=== PATIENT | male | born 1950 | race Caucasian/White ===

== ENCOUNTER → 2017-12-11 | Outpatient (CLI) | payer MEDICARE, OTHER | LOC: M SMT 11:24 | DX: R94.2 Abnormal results of pulmonary function studies (principal) | CPT/HCPCS: 71046 ==

== ENCOUNTER → 2018-05-02 | Outpatient (CLI) | payer MEDICARE, OTHER | LOC: M LRY 10:05 | DX: M17.11 Unilateral primary osteoarthritis, right knee (principal); M25.561 Pain in right knee | CPT/HCPCS: G0463 ==

== ENCOUNTER → 2018-05-02 | Outpatient (CLI) | payer OTHER | LOC: M LRY 09:59 | DX: Z53.9 Procedure and treatment not carried out, unspecified reason (principal) ==

== ENCOUNTER 2018-07-04 21:07 | Emergency (ER) | payer MEDICARE, OTHER ==
[~2018-07-04] VITALS: Ht 170.2 cm; Wt 111.4 kg
[2018-07-04 21:08] VITALS: BP 170/93
[2018-07-04] MEDS ORDERED: OMEP20CA3 (21:20)
[2018-07-04] MEDS ORDERED: CYCL10TA (21:20)
[2018-07-04] MEDS ORDERED: VITA50005 (21:20)
[2018-07-04] MEDS ORDERED: NAPR-885 (21:20)
[2018-07-04] MEDS ORDERED: ROPI0.253 (21:20)
[2018-07-04] MEDS ORDERED: LISI40TA (21:20)
[2018-07-04] MEDS ORDERED: ZETI10TA30 (21:20)
[2018-07-04] MEDS ORDERED: ASPI1TAB15 (21:20)
[2018-07-04] MEDS ORDERED: NIFE30TA50 (21:20)
[2018-07-04] MEDS ORDERED: NIFE60TA40 (21:20)
[2018-07-04] MEDS ORDERED: ALLO100T (21:20)
[2018-07-04] MEDS ORDERED: LIPI20TA PO (21:20)
[2018-07-04] MEDS ORDERED: PRAV40TA2 (21:20)
[2018-07-04] MEDS ORDERED: ROBA500T PO (22:08)
[2018-07-04] MEDS ORDERED: MOBI4TAB PO (22:08)
[2018-07-04] MEDS ORDERED: NORCO 5/325MG TABLET (BULK FOR ED) PO ONE (22:15)
[2018-07-04] MEDS ORDERED: KETOROLAC TROMETHAMINE 10 MG TAB PO ONE (22:15)
[2018-07-04] MEDS ORDERED: METHOCARBAMOL 750 MG TAB PO ONE (22:15)
== END 2018-07-04 22:22 | disposition home or self-care (01) ==
LOC: M ED 22:19
DX: S39.012A Strain of muscle, fascia and tendon of lower back, initial encounter (principal); Y93.H1 Activity, digging, shoveling and raking

== ENCOUNTER 2019-07-11 06:31 | Emergency (ER) | payer MEDICARE, OTHER ==
[~2019-07-11] VITALS: Ht 170.2 cm; Wt 106.8 kg
[~2019-07-11 06:31] MED LIST: ALLO100T; ASPI1TAB15; CYCL10TA; LIPI20TA PO; LISI40TA; MOBI4TAB PO; NAPR-885; NIFE30TA50; NIFE60TA40; OMEP1CAP73; PRAV40TA2; ROBA500T PO; ROPI0.253; VITA50005; ZETI10TA16
[2019-07-11] MEDS ORDERED: LIDOCAINE 5% (LIDODERM) PATCH TD ONE (07:30)
[2019-07-11] MEDS ORDERED: CYCL10TA PO (07:43)
[2019-07-11] MEDS ORDERED: LIDO5DIS41 TOP (07:43)
[2019-07-11] MEDS ORDERED: NORC1TAB7 PO (07:43)
[2019-07-11 07:51] VITALS: BP 142/82
[2019-07-11] MEDS ORDERED: **NOTE PATIENT COMMENT** MISC XX SCH (21:00)
== END 2019-07-11 07:53 | disposition home or self-care (01) ==
LOC: M ED 06:31
DX: S39.012A Strain of muscle, fascia and tendon of lower back, initial encounter (principal); X58.XXXA Exposure to other specified factors, initial encounter; Y92.9 Unspecified place or not applicable; Y93.9 Activity, unspecified; Y99.9 Unspecified external cause status; I10 Essential (primary) hypertension; E78.5 Hyperlipidemia, unspecified; K21.9 Gastro-esophageal reflux disease without esophagitis; Z79.82 Long term (current) use of aspirin; Z79.899 Other long term (current) drug therapy

== ENCOUNTER 2020-02-14 07:26 | Emergency (ER) | payer MEDICARE, OTHER ==
[~2020-02-14] VITALS: Ht 170.2 cm; Wt 114.8 kg
[~2020-02-14 07:26] MED LIST changes: +ASPI-546; -ASPI1TAB15; +CYCL-707; +CYCL-707 PO; -CYCL10TA; +LIDO5DIS41 TOP; +NORC1TAB7 PO
[2020-02-14] MEDS ORDERED: ACETAMINOPHEN 325 MG TAB PO ONE (08:15)
[2020-02-14] MEDS ORDERED: LIDOCAINE 5% (LIDODERM) PATCH TD ONE (08:15)
[2020-02-14 08:47] LABS: BASO # 0.1 10^3/uL (0.0-0.2); BASO % 0.8 % (0.0-1.0); EOS # 0.2 10^3/uL (0.0-0.5); EOS % 2.6 % (0.0-3.0); HEMATOCRIT 41.9 % (42.0-52.0); LYMPH # 2.2 10^3/uL (1.5-5.0); LYMPH % 31.1 % (24.0-44.0); MEAN CORPUSCULAR HEMOGLOBIN 30.5 pg (27.0-33.0); MEAN CORPUSCULAR HGB CONC 33.4 g/dl (32.0-36.5); MEAN CORPUSCULAR VOLUME 91.3 fl (80.0-96.0); MONO # 0.6 10^3/uL (0.0-0.8); MONO % 8.2 % (0.0-5.0); NEUTROPHILS # 4.1 10^3/uL (1.5-8.5); NEUTROPHILS % 56.7 % (36.0-66.0); PLATELET COUNT, AUTOMATED 247 10^3/uL (150-450); RED BLOOD COUNT 4.59 10^6/uL (4.30-6.10); WHITE BLOOD COUNT 7.2 10^3/uL (4.0-10.0)
[2020-02-14 09:09] LABS: BLOOD UREA NITROGEN 16 MG/DL (7-18); C REACTIVE PROTEIN QUANTITATIV 1.19 MG/DL (0.00-0.30); CALCIUM LEVEL 8.9 MG/DL (8.8-10.2); CARBON DIOXIDE LEVEL 29 MEQ/L (21-32); CHLORIDE LEVEL 105 MEQ/L (98-107); CREATININE FOR GFR 0.99 MG/DL (0.70-1.30); GLOMERULAR FILTRATION RATE > 60.0 (>49); GLUCOSE, FASTING 100 MG/DL (70-100); POTASSIUM SERUM 4.3 MEQ/L (3.5-5.1); SODIUM LEVEL 140 MEQ/L (136-145)
[2020-02-14 09:13] LABS: ERYTHROCYTE SEDIMENTATION RATE 8 mm/hr (0-20)
--- NOTE | 2020-02-14 09:13 | REPVR ---
PROCEDURE INFORMATION: Exam: XR Right Knee Exam date and time: 02/14/2020 8:55 AM Age: 69 years old Clinical indication: Pain; Knee; Right; Patient HX: HX of gout; Additional info: R knee pain, , h/o gout TECHNIQUE: Imaging protocol: XR Right knee. Views: 4 or more views. COMPARISON: CR KNEE COMPLETE 05/02/2018 10:28 AM FINDINGS: Bones/joints: Advanced degenerative change of the patellofemoral compartment. Moderate degenerative change of the medial and lateral compartments. Superior and inferior patellar enthesophytes. No acute fracture. No dislocation. Soft tissues: Normal. Vasculature: Scattered vascular calcifications. IMPRESSION: Tricompartmental DJD. Electronically signed by: Rivka Hoffman On 02/14/2020 09:13:28 AM
--- NOTE | 2020-02-14 09:16 | REPVR ---
PROCEDURE INFORMATION: Exam: XR Lumbosacral Spine, 4 or 5 Views Exam date and time: 02/14/2020 8:55 AM Age: 69 years old Clinical indication: Low back pain; Additional info: Right low back pain TECHNIQUE: Imaging protocol: XR of the lumbosacral spine, 4 or 5 views. COMPARISON: No relevant prior studies available. FINDINGS: Vertebrae: Multilevel posterior facet joint arthropathy. Multilevel [id number]-[id number] degenerative endplate changes. Multilevel bridging ventral osteophytes. 4 mm of retrolisthesis of L5 on S1. Mild disc space narrowing at L5-S1. No acute fracture is identified. Soft tissues: Unremarkable. Vasculature: Atherosclerotic vascular calcifications. IMPRESSION: 1. Multilevel degenerative endplate changes and posterior facet joint arthropathy. 2. Minimal retrolisthesis of L5 on S1. Electronically signed by: Rivka Hoffman On 02/14/2020 09:15:56 AM
[2020-02-14] MEDS ORDERED: COLCHICINE 0.6 MG TAB PO ONE ×2 (09:45)
[2020-02-14] MEDS ORDERED: LIDO5DIS41 TOP (09:49)
[2020-02-14] MEDS ORDERED: COLC1TAB13 PO (10:03)
[2020-02-14 10:10] VITALS: BP 138/68
[2020-02-14] MEDS ORDERED: **NOTE PATIENT COMMENT** MISC XX ONE (21:00)
== END 2020-02-14 10:10 | disposition home or self-care (01) ==
LOC: M ED 07:26
DX: M51.36 Other intervertebral disc degeneration, lumbar region (principal); M43.16 Spondylolisthesis, lumbar region; M25.561 Pain in right knee; M10.9 Gout, unspecified; E78.5 Hyperlipidemia, unspecified; K21.9 Gastro-esophageal reflux disease without esophagitis; I10 Essential (primary) hypertension; Z79.82 Long term (current) use of aspirin; Z79.899 Other long term (current) drug therapy

== ENCOUNTER → 2020-03-04 | Outpatient (CLI) | payer MEDICARE, OTHER ==
[~2020-03-04] MED LIST changes: +COLC1TAB13 PO
--- NOTE | 2020-03-19 17:32 | REP ---
RIGHT ANKLE SERIES: 4 VIEWS. HISTORY: Right ankle pain. FINDINGS: Four views to the right ankle demonstrate moderate osteoarthritis at the tibiotalar articulation with spurring anteriorly and posteriorly. There is a large Achilles calcaneal spur. Small accessory ossicles are seen adjacent to the medial and lateral malleoli. These appear chronic. No erosive changes seen> there is tendon insertion site spurring on the tarsal navicula and on the proximal 5th metatarsal. IMPRESSION: Ankle osteoarthritic changes. Heel spurring. JARADD
--- NOTE | 2020-03-19 17:33 | REP ---
RIGHT FOOT SERIES: 4 VIEWS. HISTORY: Pain. COMPARISON: Right foot radiographs 06/25/06 FINDINGS: There is tendon insertion site spurring at the medial surface of the tarsal navicula and laterally at the proximal 5th metatarsal and at the lateral aspect of the calcaneus. There is mild midfoot osteoarthritic spurring. Prominent Achilles calcaneal spur is noted. A small planter calcaneal spur is noted. Ankle osteoarthritic spurring is seen. 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 This is unchanged from the 2007 study. IMPRESSION: Osteoarthritis and enthesopathy spurring. No acute bony abnormality. Heel spurs. MTDD
== END ==
LOC: M ADAMS 07:59
PROVIDERS: ATTEND Nurse Practitioner Family
DX: M19.071 Primary osteoarthritis, right ankle and foot (principal)

== ENCOUNTER → 2020-04-30 | Outpatient (CLI) | payer MEDICARE, OTHER | LOC: M LABSMTC 09:34 | PROVIDERS: ATTEND Family Medicine | DX: Z20.828 Contact with and (suspected) exposure to other viral communicable diseases (principal) ==

== ENCOUNTER → 2020-07-13 | Outpatient (CLI) | payer MEDICARE, OTHER ==
[~2020-07-13] MED LIST changes: +COLC0.6T47 PO; -COLC1TAB13 PO; +ECOT81TA5 PO; -LISI40TA; +LISI40TA4; +PERC5TAB12 PO; +ZETI10TA16 PO
[2020-07-13 09:15] LABS: HEMATOCRIT 43.4 % (42.0-52.0); HEMOGLOBIN 14.4 g/dl (13.5-17.5); MEAN CORPUSCULAR HEMOGLOBIN 30.1 pg (27.0-33.0); MEAN CORPUSCULAR HGB CONC 33.2 g/dl (32.0-36.5); MEAN CORPUSCULAR VOLUME 90.8 fl (80.0-96.0); PLATELET COUNT, AUTOMATED 234 10^3/uL (150-450); RED BLOOD COUNT 4.78 10^6/uL (4.30-6.10); WHITE BLOOD COUNT 5.7 10^3/uL (4.0-10.0)
[2020-07-13 09:25] LABS: INR 0.94; PROTHROMBIN TIME 12.8 SECONDS (12.5-14.3)
--- NOTE | 2020-07-13 09:27 | REP ---
INDICATION: KNEE OSTEOARTHRITIS/PRE OP/ LABS COMPARISON: 12/11/2017 TECHNIQUE: PA and lateral. FINDINGS: The mediastinum and cardiac silhouette are normal. The lung resendiz are clear and without acute consolidation, effusion, or pneumothorax. The skeletal structures are intact and normal. IMPRESSION: No acute cardiopulmonary process. <Electronically signed by Tu Alvarez > 07/13/20 0923
--- NOTE | 2020-07-13 09:30 | ECGEPIP ---
[facility] Test Date: 2020-07-13 Pat Name: MAXIMILIAN OAKLEY Department: Room: - Gender: Male [employer]: : 1950 Requested By: Kiana Montgomery Order Number: [id number] Reading MD: Milton Ferreira Measurements Intervals [place] Rate: 58 P: 20 AK: 159 QRS: 2 QRSD: 98 T: 12 QT: 405 QTc: 401 Interpretive Statements SINUS BRADYCARDIA Marginal inferoapical ST/T wave abnormalities No change from 05/04/16. Electronically Signed on 07-13-2020 9:29:51 EST by Milton Ferreira
[2020-07-13 09:33] LABS: ERYTHROCYTE SEDIMENTATION RATE 6 mm/hr (0-20)
[2020-07-13 09:43] LABS: ALBUMIN 3.8 GM/DL (3.2-5.2); ALT/SGPT 32 U/L (12-78); BILIRUBIN,TOTAL 0.4 MG/DL (0.2-1.0); BLOOD UREA NITROGEN 20 MG/DL (7-18); CALCIUM LEVEL 9.3 MG/DL (8.8-10.2); CARBON DIOXIDE LEVEL 29 MEQ/L (21-32); CHLORIDE LEVEL 105 MEQ/L (98-107); CREATININE FOR GFR 0.94 MG/DL (0.70-1.30); GLOMERULAR FILTRATION RATE > 60.0 (>49); GLUCOSE, FASTING 108 MG/DL (70-100); POTASSIUM SERUM 4.3 MEQ/L (3.5-5.1); SODIUM LEVEL 142 MEQ/L (136-145); TOTAL PROTEIN 7.1 GM/DL (6.4-8.2)
== END ==
LOC: M LAB 08:31
PROVIDERS: ATTEND Orthopaedic Surgery
DX: Z01.818 Encounter for other preprocedural examination (principal); M17.11 Unilateral primary osteoarthritis, right knee

== ENCOUNTER → 2020-07-15 | Outpatient (CLI) | payer MEDICARE, OTHER | LOC: M LABSMTC 11:37 | PROVIDERS: ATTEND Anesthesiology | DX: Z01.812 Encounter for preprocedural laboratory examination (principal); Z20.822 Contact with and (suspected) exposure to COVID-19 ==

== ENCOUNTER 2020-07-20 06:55 | Inpatient (IN) | payer MEDICARE, OTHER ==
--- NOTE | 2020-07-16 09:00 | HPE ---
HISTORY AND PHYSICAL DATE OF ANTICIPATED ADMISSION: 07/20/2020 ADMITTING DIAGNOSIS: Osteoarthritis of the right knee. HISTORY OF PRESENT ILLNESS: This is a 70-year-old male patient with progressively worsening knee pain and stiffness, who has failed to improve with conservative management. He has elected for surgery for his continued symptoms. He has pain with weightbearing activities and activities of daily living. X-ray is notable for end-stage degenerative changes of the right knee. He has been consented by Dr. House for a right total knee arthroplasty. Medical optimization is pending at [place] ALLERGIES: No known drug allergies. CURRENT MEDICATIONS: - allopurinol 100 mg one tablet once per day. - Ezetimibe 10 mg one tablet once per day. - naproxen 500 mg one tablet twice a day; he discontinued that two days ago. - nifedipine extended release 60 mg one tablet once per day. - Prilosec 20 mg one tablet once per day. - pravastatin 40 mg one tablet once per day. - hydrochlorothiazide 12.5 mg one to two tablets once per day. - aspirin 81 mg once per day; discontinued that two days ago. PAST MEDICAL HISTORY: 1. Hypertension. 2. Gout. 3. Elevated lipids. 4. Gastric reflux disease. 5. Symptomatic osteoarthritis both knees. PAST SURGICAL HISTORY: None. FAMILY HISTORY: Non-contributory. SOCIAL HISTORY: He does not smoke. He occasionally uses alcohol. He is retired. REVIEW OF SYSTEMS: Denies fever or chills. Denies chest pain, shortness of breath, or cough. Denies difficulty breathing. Denies abdominal pain. Denies nausea or vomiting. Notes persistent pain in his right knee with weightbearing activities and activities of daily living. He denies exposure to COVID-19. Denies recent URI or UTI symptoms. PHYSICAL EXAMINATION: VITAL SIGNS: Height 67 inches, weight 246 pounds, temperature 97.1, blood pressure 182/86, pulse 67, respirations 14, BMI 38.6. GENERAL APPEARANCE: Today reveals a well-nourished and well-developed male patient. He ambulates with the use of a cane. He favors mainly his right side. EXTREMITIES: The right knee does reveal a 3-degree flexion contracture on the right side. The calf is soft and nontender to palpation. Well-perfused right lower extremity. He can sensate light touch. Dorsalis pedis and posterior tibial pulses are palpable. No irritability with hip range of motion. There is irritability on knee range of motion. NECK: Supple without adenopathy or JVD. LUNGS: Clear to auscultation without rales or wheeze. HEART: Regular rate and rhythm. ABDOMEN: Bowel sounds are present. LABORATORY DATA: ProTime 12.8, INR 0.94. WBC count 5.7, RBC count 4.7, hemoglobin 14.4, hematocrit 43.4, glucose 108, BUN 20, creatinine 0.94, sodium 142, potassium 4.3. EKG sinus bradycardia. IMAGING STUDIES: Chest x-ray with no acute cardiopulmonary disease process noted. IMPRESSION: Symptomatic osteoarthritis of the right knee. PLAN: He has been consented by Dr. House for a right total knee arthroplasty. We went over his pre- and postoperative instructions. We went over the importance of him being n.p.o. No NSAIDs five days prior to surgery. Take only the medications as directed by his primary. He understands n.p.o. after midnight and what that means. He understands to be on time for his appointment. We went over his COVID restrictions. He should be self-quarantined after his COVID testing. All of his questions were answered.
[2020-07-20] VITALS (9 sets, daily range): BP systolic 138–157; BP diastolic 70–88; O2SAT 95–97
[~2020-07-20] VITALS: Ht 170.2 cm; Wt 114.0 kg
[~2020-07-20 06:55] MED LIST changes: +ACETAMINOPHEN 500 MG TAB PO ONE; -ECOT81TA5 PO; +LISI40TA; -LISI40TA4; +LR 1,000 ML IV ONE; -PERC5TAB12 PO; +ceFAZolin SOD 2 GM in IV 1 EA IV ONE
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
--- OUTSIDE RECORDS SUMMARY | 2020-07-20 07:01 | CCD | Continuity of Care Document ---
Author Author Sloan NICHOLE MD Organization Unknown Address [address] [place] [address], [address] [address] Phone [phone] Care Team Providers Care Supervisor Electronic Coils Name Role Phone Darron Drummond DO AUTM [phone] Problems Active Problems Provider Date Essential hypertension Kiana Nichole MD Onset: 05/22 Pure hypercholesterolemia Kiana Nichole MD Onset: Social History Type Date Description Comments Sex Unknown ETOH Use Occasionally consumes alcohol Tobacco Use Start: Unknown End: Unknown Patient is a former smoker Allergies, Adverse Reactions, Alerts Description No Known Drug Allergies Medications Active Medications SIG Qnty Indications Ordering Provide r Date Hydrocodone-Acetaminophen 5-325mg Tablets Bridget Tristan, [employer]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 0 Cyclobenzaprine HCL 10mg Tablets Bridget rTistan, [employer]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 Aspirin Low Dose 81mg Tablets Darron Laws DO Hydrochlorothiazide 12.5mg Capsules Isaiah Gaspar Wbmgu-[id number] Ethyl Esters 1gm Capsules Isaiah Gaspar Lidocaine 5% Patches Lilliana Syed PA-C Colchicine 0.6mg Tablets Lilliana Syed PA-C TGT Allergy Relief 25mg Capsules Unknown Acetaminophen 325mg Tablets Unknown Sildenafil Citrate 100mg Tablets Isaiah Gaspar Vitamin D3 1.25mg (08600 Ut) Capsules Unknown Pravastatin Sodium 40mg Tablets Unknown Omeprazole 20mg Capsules DR Ratliff Nifedipine ER 60mg Tablets ER 24HR Unknown Naproxen 500mg Tablets Unknown Fish Oil 1000mg Capsules Unknown Ezetimibe 10mg Tablets Unknown Allopurinol 100mg Tablets Unknown Immunizations Description No Information Available Vital Signs Date Vital Result Comment 05/22/2020 8:40am Body Temperature 96.8 F Height 66.5 inches 5'6.50" Weight 260.00 lb BMI (Body Mass Index) 41.3 kg/m2 Results Test Acquired Date Facility Test Result H/L Range Note Order 05/25/2020 [facility] nter Surgery <pending> Procedures Date Code Description Status 05/22/2020 82432 X-Ray Knee Ap & Lateral W/Obliqu es Three Views Completed Medical Devices Description No Information Available Encounters Type Date Location Provider Dx Diagnosis Office Visit 05/22/2020 8:30a [place] Kiana Nichole MD M1 7.0 Bilateral primary osteoarthritis of knee Assessments Date Code Description Provider 05/22/2020 M17.0 Bilateral primary osteoarthritis of knee Kiana Nichole MD Plan of Treatment 05/22/2020 - Kiana Nichole MD* M17.0 Bilateral primary osteoarthritis of knee* Follow up:* post op Functional Status Description No Information Available Mental Status Description No Information Available Referrals Refer to Reason for Referral Status Appt Date Geoffrey Nichole MD SURGERY NO AUTH REQUIRED FOR RT TOTAL KNEE ([id number]) TO SURGERY NT Created [facility], [address] [place] [address] [phone]
--- OUTSIDE RECORDS SUMMARY | 2020-07-20 07:01 | CCD | Continuity of Care Document ---
Author Author Sloan NICHOLE MD Organization Unknown Address [address] [place] [address], [address] [address] Phone [phone] Care Team Providers Care Catering Barista Name Role Phone Darron Drummond DO AUTM [phone] Problems Active Problems Provider Date Essential hypertension [...] r Date Hydrocodone-Acetaminophen 5-325mg Tablets Bridget Tristan, HOTEL VALET ATTENDANT 0 Cyclobenzaprine HCL 10mg Tablets Bridget Tristan, HOTEL VALET ATTENDANT Aspirin Low Dose 81mg Tablets Darron Laws DO Hydrochlorothiazide 12.5mg Capsules Isaiah Gaspar Ctywc-1-Nacc Ethyl Esters 1gm Capsules Isaiah Gaspar Lidocaine 5% Patches Lilliana Syed PA-C Colchicine 0.6mg Tablets Lilliana Syed PA-C TGT Allergy Relief 25mg Capsules Unknown Acetaminophen 325mg Tablets Unknown Sildenafil Citrate 100mg Tablets Isaiah Gaspar Vitamin D3 1.25mg (33095 Ut) Capsules Unknown Pravastatin Sodium 40mg Tablets [...] BMI (Body Mass Index) 41.3 kg/m2 Results Description No Information Available Procedures Date Code Description Status 05/22/2020 03155 X-Ray Knee Ap & Lateral W/Obliqu es Three Views Completed 05/22/2020 01689 X-Ray Knee Ap & Lateral W/Obliqu es Three Views Completed Medical Devices Description No Information Available Encounters Description No Information Available Assessments Date Code Description Provider 05/22/2020 M17.11 Unilateral primary osteoarthriti s, right knee Kiana Nichole MD 05/22/2020 M17.12 Unilateral primary osteoarthriti s, left knee Kiana Nichole MD Plan of Treatment 05/22/2020 - Kiana Nichole MD* M17.11 Unilateral primary osteoarthritis, right knee* New Orders:* Surgery, Ordered: 05/22/20 * Follow up:* post op * M17.12 Unilateral primary osteoarthritis, left knee Functional Status Description No Information Available Mental Status Description No Information Available Referrals Description No Information Available
--- OUTSIDE RECORDS SUMMARY | 2020-07-20 07:01 | CCD | Continuity of Care Document ---
Author Author Sloan NICHOLE MD Organization Unknown Address [address] [place] [address], [address] [address] Phone [phone] Care Team Providers Care It Integration Architect Name Role Phone Darron Drummond DO AUTM [phone] Problems Active Problems Provider Date Essential hypertension [...] Provide r Date Hydrocodone-Acetaminophen 5-325mg Tablets Bridget Tristan FNP 0 Cyclobenzaprine HCL 10mg Tablets Bridget Tristan FNP Aspirin Low Dose 81mg Tablets Darron Laws DO Hydrochlorothiazide 12.5mg Capsules Isaiah Gaspar Jjozi-5-Cuyk Ethyl Esters 1gm Capsules Isaiah Gaspar Lidocaine 5% Patches Lilliana Syed PA-C Colchicine 0.6mg Tablets Lilliana Syed PA-C TGT Allergy Relief 25mg Capsules Unknown Acetaminophen 325mg Tablets Unknown Sildenafil Citrate 100mg Tablets Isaiah Gaspar R Vitamin D3 1.25mg (16430 Ut) Capsules Unknown Pravastatin Sodium 40mg Tablets [...] Date Facility Test Result H/L Range Note Prothrombin Time/Inr 07/13/2020 [facility] entr [address] [place] [phone] - Prothrombin Time 12.8 seconds Normal 12.5-14.3 Inr 0.94 Normal 1 Complete Blood Count 07/13/2020 [facility] entr [address] [place] [phone] - White Blood Count 5.7 10 Normal 4.0-10.0 Red Blood Count 4.78 10 Normal 4.30-6.10 Hemoglobin 14.4 g/dL Normal 13.5-17.5 Hematocrit 43.4 % Normal 42.0-52.0 Mean Corpuscular Volume 90.8 fl Normal 80.0-96.0 Mean Corpuscular Hemoglobin 30.1 pg Normal 27.0-33.0 Mean Corpuscular HGB Conc 33.2 g/dL Normal 32.0-36.5 Red Cell Distribution Width 12.8 % Normal 11.5-14.5 Platelet Count, Automated 234 10 Normal 150-450 Nucleated Red Blood Cell % 0.0 % Normal 0-0 Laboratory test finding 07/13/2020 [facility] [address] [place] [address] [phone] - Erythrocyte Sedimentation Rate 6 mm/hr Normal 0-20 Comprehensive Metabolic Profil 07/13/2020 [facility] [address] [place] [address] [phone] - Glucose, Fasting 108 mg/dL High 70-100 Blood Urea Nitrogen 20 mg/dL High 7-18 Creatinine For GFR 0.94 mg/dL Normal 0.70-1.30 Glomerular Filtration Rate > 60.0 Normal >49 2 Sodium Level 142 mEq/L Normal 136-145 Potassium Serum 4.3 mEq/L Normal 3.5-5.1 Chloride Level 105 mEq/L Normal 98-107 Carbon Dioxide Level 29 mEq/L Normal 21-32 Anion Gap 8 mEq/L Normal 8-16 Calcium Level 9.3 mg/dL Normal 8.8-10.2 Ast/Sgot 15 U/L Normal 7-37 Alt/SGPT 32 U/L Normal 12-78 Alkaline Phosphatase 103 U/L Normal 45-117 Bilirubin,Total 0.4 mg/dL Normal 0.2-1.0 Total Protein 7.1 GM/DL Normal 6.4-8.2 Albumin 3.8 GM/DL Normal 3.2-5.2 Albumin/Globulin Ratio 1.2 Normal 1 THERAPUTIC HUMAN INR VALUES INDICATIONS NORMAL RANGES PROPHYLAXIS/TREATMENT OF: VENOUS THROMBOSIS 2.0-3.0 PULMONARY EMBOLISM 2.0-3.0 PREVENTION OF SYSTEMIC EMBOLISM FROM: TISSUE HEART VALVES 2.0-3.0 ACUTE MYOCARDIAL INFARCTION 2.0-3.0 VALVULAR HEART DISEASE 2.0-3.0 ATRIAL FIBRILLATION 2.0-3.0 MECHANICAL VALVES(HIGH RISK) 2.5-3.5 RECURRENT MYOCARDIAL INFARCTION 2.5-3.5 2 Units are mL/min/1.73 m2 Chronic Kidney Disease Staging per NKF: Stage I & II GFR >=60 Normal to Mildly Decreased Stage III GFR 30-59 Moderately Decreased Stage IV GFR 15-29 Severely Decreased Stage V GFR <15 Very Little GFR Left ESRD GFR <15 on REHABILITATION ASSISTANT Procedures Date Code Description Status 05/22/2020 33010 X-Ray Knee Ap & Lateral W/Obliqu es Three Views Completed Medical Devices Description No Information Available Encounters Type Date Location Provider Dx Diagnosis Office Visit 05/22/2020 8:30a [place] Kiana Nichole MD M1 7.0 Bilateral primary osteoarthritis of knee Assessments Date Code Description Provider 05/22/2020 M17.0 Bilateral primary osteoarthritis of knee Kiana Nichole MD Plan of Treatment Future Appointment(s):* 07/20/2020 7:30 am - Kim Da Silva PA-C at Surgery [facility] Inpatient * 07/20/2020 7:30 am - Kiana Nichole MD at Surgery [facility] Inpatient * 07/16/2020 8:00 am - Sloan Swenson PMarguerite at [place] * 08/03/2020 3:00 pm - Sina Pham PA-C at [place] 05/22/2020 - Kiana Nichole MD* M17.0 Bilateral primary osteoarthritis of knee* Follow up:* post op Functional Status Description No Information Available Mental Status Description No Information Available Referrals Refer to Dr Reason for Referral Status Appt Date Geoffrey Nichole MD SURGERY NO AUTH REQUIRED FOR RT TOTAL KNEE ([id number]) TO SURGERY NT Created [address] [place] [address], [address] [place] [address] [phone]
[2020-07-20] MEDS ORDERED: TRANEXAMIC ACID 100 MG/ML 10ML VIAL As Ordered ONE (07:08)
[2020-07-20] MEDS ORDERED: BUPIVACAINE HCL 0.25% 30ML VIAL As Ordered ONE (07:08)
[2020-07-20] MEDS ORDERED: ceFAZolin 1GM VIAL (J0690 PER 500MG) As Ordered ONE (07:08)
[2020-07-20] MEDS ORDERED: BUPIVACAINE LIPOSOME/PF 1.3% 20ML VIAL (13.3MG/ML)(EXPAREL)(C9290 PER1MG) As Ordered ONE (07:09)
[2020-07-20] MEDS ORDERED: EPINEPHrine INJ 1 MG/ML 1ML AMP As Ordered ONE (07:09)
[2020-07-20] MEDS ORDERED: ONDANSETRON 4MG/2ML VIAL As Ordered ONE (07:25)
[2020-07-20] MEDS ORDERED: fentaNYL 100 MCG/2 ML INJECTION (J3010) As Ordered ONE (07:25)
[2020-07-20] MEDS ORDERED: MIDAZOLAM INJ 2MG/2ML VIAL (J2250 PER 1MG) As Ordered ONE (07:26)
[2020-07-20] MEDS ORDERED: LIDOCAINE 2% 100MG/5ML SDV (FOR ANES.) As Ordered ONE (07:26)
[2020-07-20] MEDS ORDERED: propofoL 200 MG/20 ML VIAL As Ordered ONE ×4 (07:26→11:15)
[2020-07-20] MEDS ORDERED: fentaNYL 100 MCG/2 ML INJECTION (J3010) IV PRN ×2 (08:00→12:00)
[2020-07-20] MEDS ORDERED: EPINEPHrine INJ 1 MG/ML 1ML AMP XX ONE (08:00)
[2020-07-20] MEDS ORDERED: ROPIvacaine 0.5% 30ML INJECTION (J2795 PER 1MG) XX ONE (08:00)
[2020-07-20] MEDS ORDERED: MIDAZOLAM INJ 2MG/2ML VIAL (J2250 PER 1MG) IV PRN (08:00)
[2020-07-20] MEDS ORDERED: dexameTHASONE 10MG/1ML VIAL PRES.FREE (J1100 PER 1MG) XX ONE (08:00)
[2020-07-20] MEDS ORDERED: BUPIVACAINE HCL 0.25% 10ML VIAL As Ordered ONE (08:12)
[2020-07-20] MEDS ORDERED: hydrALAZINE 20MG/ML 1ML VIAL (J0360 PER 20MG) As Ordered ONE (11:26)
[2020-07-20] MEDS ORDERED: LR 1,000 ML IV SCH ×2 (12:00→12:15)
[2020-07-20] MEDS ORDERED: ONDANSETRON 4MG/2ML VIAL IV PRN ×2 (12:00→12:15)
[2020-07-20] MEDS ORDERED: oxyCODONE 5MG TAB PO PRN (12:00)
--- NOTE | 2020-07-20 12:10 | REP ---
INDICATION: S/P TKA COMPARISON: 02/14/2020. TECHNIQUE: AP and lateral right knee. FINDINGS: There is placement of total knee prosthesis, femoral and tibial components are in good position. There is no fracture or malalignment. Metallic skin hector are seen anteriorly. IMPRESSION: Right total knee arthroplasty in good position. <Electronically signed by Grant Bee > 07/20/20 [id number]
[2020-07-20] MEDS ORDERED: PERCOCET 5MG/325MG TAB PO PRN ×3 (12:15→18:00)
[2020-07-20] MEDS ORDERED: MORPHINE 2 MG/ML 1ML VIAL (J2270) IV PRN (12:15)
[2020-07-20] MEDS ORDERED: MORPHINE 4 MG/ML 1ML VIAL/SYRINGE (J2270) IV PRN (12:15)
--- NOTE | 2020-07-20 14:26 | RO ---
OPERATIVE NOTE DATE OF OPERATION: 07/20/2020 PREOPERATIVE DIAGNOSIS: Right knee degenerative arthritis. POSTOPERATIVE DIAGNOSIS: Right knee degenerative arthritis. PROCEDURE: Right total knee arthroplasty using size 5 cruciate-retaining femoral component with size 6 tibial tray and 6 mm rotating platform polyethylene insert, 35 mm polyethylene button, all components were cemented. Prosthesis made by [employer]. It was Attune knee. SURGEON: Kiana Nichole MD MODELER: Kim Da Silva ANESTHESIA: Spinal with right femoral nerve block. COMPLICATIONS: None. ESTIMATED BLOOD LOSS: 20 mL. SPECIMEN: Joint surface. DESCRIPTION OF PROCEDURE: Antibiotics were given intravenously preoperatively and then successful right femoral nerve block and then spinal anesthetic was induced. Tourniquet placed about right upper thigh, not inflated. Right lower extremity was carefully prepped and draped in usual sterile fashion. After appropriate time out the leg was elevated and tourniquet was inflated to 250 mmHg. Longitudinal incision was made for medial parapatellar approach to the knee. Bovie cautery was used to coagulate crossing vessels. Medial arthrotomy was performed. Subperiosteal dissection around the proximal medial tibial plateau was performed and proximal lateral tibial plateau was performed. We then everted the patella, debrided the ACL and flexed the knee and placed a drill down the center of the femoral canal. The intramedullary alicia was then placed down the center of the femoral canal followed by distal femoral cutting jig set at 5 degree valgus cut for right knee at 9 mm resection level. The block was pinned into position and the distal femoral cut was performed. I felt that we were a bit shy in terms of the lateral femoral condyle cut and he did have quite a flexion contracture thus I took an additional 2 mm from the distal femur. AP sizing jig measured for size 5, it was pinned into position with 3 degrees of external rotation dialed in. Pins were placed and then four-in-one block applied. The anterior, posterior and chamfer cuts performed. We then placed the jig for the sulcus osteotomy, applied to the distal femur and sulcus osteotomy performed. We exposed the proximal tibia and used the extramedullary alignment jig to estimate being parallel to the mechanical axis with the tibia referencing off the medial tibial condyle at 4 mm resection level. Once it was adjusted and pinned into position secondary check with extramedullary alicia confirmed we appeared to be parallel to the mechanical axis. The proximal tibial osteotomy was thus performed. We then placed laminar intranet support laterally and performed completion lateral meniscectomy debriding of the posterolateral osteophytes. We then placed laminar intranet support medially and performed completion medial meniscectomy debriding the posteromedial osteophytes. The 6 mm spacer block actually fit the best with good symmetry in both the medial and lateral compartments in both flexion and in extension thus I felt this was the appropriate size to use. I then exposed the proximal tibia and sized for #6 tibial tray which was pinned into position followed by the reamer and broach, trial polyethylene was placed and the trial femoral component was placed, brought the knee into extension, everted the patella and performed patellar osteotomy and debrided the large osteophytes that were circumferentially noted about the patella. 35 button fit nicely. We drilled the lug holes and applied the trial and then brought the knee through range of motion. He had good stability to varus/valgus stress testing; he had good extension and flexion as well. Thus I drilled the lug holes for the femur, removed all the trial components and at this point Exparel was placed in subperiosteal tissues around the distal femur and proximal tibia as Kim Da Silva then mixed the cement on the back table as I prepared the bony surfaces for cementing with copious amount of pulsatile lavage irrigant solution. She was also critical to the success of this difficult procedure by helping with the appropriate soft tissue retraction, flexing and extending the knee as needed, helped to mixed the cement, helped to close the wound, helped to prepare the patient amongst many other tasks to allow me to perform the operation smoothly, efficiently and safely. We then cemented the tibial tray, removed excess cement and placed polyethylene and then cemented the femoral component, removed excess cement, brought the knee into extension and then cemented the patellar button, removed excess cement and held it with a clamp, with the knee in full extension until the cement hardened. As we were waiting for this we copiously irrigated out the knee joint with copious amounts of pulsatile lavage irrigant saline solution. Tranexamic acid was then placed in the depths of the wound and we began closing the apex of the arthrotomy with two #1 PDS sutures, medial parapatellar area was closed with #1 PDS suture and then double-armed #1 Stratafix was used to close the capsule. Tourniquet was released, we irrigated between layers, closed the deep subdermal tissue with interrupted 2-0 PDS sutures, skin was closed with hector, covered by Optifoam, dry, sterile bulky dressing. He was then transferred to the recovery room in stable condition. There were no intraoperative complications. cc: [facility]
--- NOTE | 2020-07-20 15:14 | CR.PDOC ---
General Date of Consultation: Jul 20, 2020 Consultation Chief complaint: Presented to [facility] for an elective orthopedic procedure History of present illness: Patient is a 70-year-old male who presented to [facility] for an elective orthopedic procedure. He has received outpatient medical clearance from his primary care provider at [place]. Hospitalist service was consulted after he had received his right knee total arthroplasty. Currently patient denies any headache, nausea, vomiting, chest pain, shortness breath, palpitations, abdominal pain, constipation, diarrhea, or urinary discomfort. Patient denies any recent fevers or chills. Reports that his appetite is fairly normal and is unsure of any changes in his weight. Past Medical History: HTN DLP Gout OA RLS GERD Past Surgical History: Left hand fourth digit fracture Right foot 30 digit fracture Allergies: See below Medications: See below Family History: - No history of malignancies Social History: - Denies the use of illicit substances; social alcohol use; quit smoking 21 years ago smoker of greater than 30 years at 3-5 PPD - Denies recent travel or sick contacts - Lives with - Retired; Review of Systems: 10 point review of systems complete, all negative otherwise stated in HPI Physical exam: - Vitals: BP [141/77], HR [61], RR [18], Sat [99%RA], Temp [98.4F] - General: Lying in bed, Speaking in full sentences, AAOx3 - HEENT: NC, AT, PERRLA - CVS: RRR, +S1S2 - Lungs: Fair air entry bilaterally, No appreciable wheezing / rales / rhonchi - Abdomen: Soft, Non-distended, Non-tender - Extremities: No lower extremity edema, No calf tenderness, R knee in dressing - Neuro: No focal motor or sensory deficit - Skin: No visible rashes Labs: See below Imaging: See below EKG: See below Assessment and Plan: Elective total right knee arthroplasty (POD#0) - Presented to [facility] for elective orthopedic procedure - As received outpatient medical concerns from his primary care provider at [place] - Pain control, anticoagulation and physical therapy at the direction of primary orthopedic team HTN - BP well controlled - c/w Lisinopril / Nifedipine DLP - c/w Ezetimibe Gout - c/w Allpurinol OA - c/w Tylenol RLS - c/w Ropinirole GERD - c/w Omeprazole DVT prophylaxis - As per primary orthopedic team Vital Signs/I&O Vital Signs Date Time Temp Pulse Resp B/P (MAP) Pulse Ox O2 Delivery O2 Flow Rate FiO2 07/20/20 15:06 17 07/20/20 14:30 98.4 61 141/77 (98) 99 Room Air 07/20/20 09:20 2 Allergies Coded Allergies: No Known Allergies (Unverified , 07/11/19) Home Medications Scheduled Allopurinol (Allopurinol) 100 Mg Tab, DAILY, (Reported) Colchicine (Colchicine) 0.6 Mg Tablet, 1 TAB PO DAILY for gout pain for 1 Days, #1 please take at 11am (1 hour after initial 1.2mg dose in ED). Ezetimibe (Zetia) 10 Mg Tablet, 10 MG PO DAILY, (Reported) Lisinopril (Lisinopril) 40 Mg Tab, DAILY, (Reported) Naproxen (Naproxen) 500 Mg Tab, DAILY, (Reported) Nifedipine (Nifedipine ER) 60 Mg Tab, DAILY, (Reported) Omeprazole (Omeprazole) 20 Mg Cap, DAILY, (Reported) Pravastatin Sodium (Pravastatin Sodium) 40 Mg Tab, DAILY, (Reported) Ropinirole HCl (Ropinirole HCl) 0.25 Mg Tab, DAILY, (Reported) SALVATORE CERDA MD Jul 20, 2020 15:13
[2020-07-20] MEDS: allopurinoL 100 MG TAB PO SCH (15:51)
[2020-07-20] MEDS: PRAVASTATIN 20 MG TAB PO SCH (15:51)
[2020-07-20] MEDS: EZETIMIBE 10 MG TAB (ZETIA) PO SCH (15:51)
[2020-07-20] MEDS: lisinopriL 40 MG TAB PO SCH (15:51)
[2020-07-20] MEDS: NIFEdipine 30 MG XL TAB PO SCH (17:55)
[2020-07-20] MEDS: PERCOCET 5MG/325MG TAB PO PRN ×2 (17:56→22:43)
[2020-07-20] MEDS: ceFAZolin SOD 2 GM in IV 1 EA IV SCH (17:56)
[2020-07-20] MEDS: ASPIRIN 81 MG ENTERIC TAB PO SCH (21:41)
[2020-07-21 02:00] VITALS: BP 120/77
[2020-07-21] MEDS: ceFAZolin SOD 2 GM in IV 1 EA IV SCH ×2 (02:26→08:46)
[2020-07-21] MEDS ORDERED: MOM 30ML SUSPENSION UDC PO SCH (05:30)
[2020-07-21] MEDS ORDERED: PERC5TAB12 PO (05:49)
[2020-07-21] MEDS ORDERED: ECOT81TA5 PO (05:49)
[2020-07-21 06:00] VITALS: BP 127/75
[2020-07-21 06:12] LABS: HEMATOCRIT 39.2 % (42.0-52.0); HEMOGLOBIN 12.9 g/dl (13.5-17.5); MEAN CORPUSCULAR HEMOGLOBIN 30.4 pg (27.0-33.0); MEAN CORPUSCULAR HGB CONC 32.9 g/dl (32.0-36.5); MEAN CORPUSCULAR VOLUME 92.2 fl (80.0-96.0); PLATELET COUNT, AUTOMATED 234 10^3/uL (150-450); RED BLOOD COUNT 4.25 10^6/uL (4.30-6.10); WHITE BLOOD COUNT 11.1 10^3/uL (4.0-10.0)
[2020-07-21] MEDS: PERCOCET 5MG/325MG TAB PO PRN ×4 (06:23→21:01)
[2020-07-21] MEDS: ACETAMINOPHEN TAB 650MG DOSE (2X325MG) PO PRN ×2 (06:24→15:58)
[2020-07-21 06:34] LABS: ALBUMIN 3.3 GM/DL (3.2-5.2); ALT/SGPT 29 U/L (12-78); BILIRUBIN,TOTAL 0.4 MG/DL (0.2-1.0); BLOOD UREA NITROGEN 14 MG/DL (7-18); CALCIUM LEVEL 8.9 MG/DL (8.8-10.2); CARBON DIOXIDE LEVEL 28 MEQ/L (21-32); CHLORIDE LEVEL 103 MEQ/L (98-107); CREATININE FOR GFR 1.01 MG/DL (0.70-1.30); GLOMERULAR FILTRATION RATE > 60.0 (>49); GLUCOSE, FASTING 128 MG/DL (70-100); SODIUM LEVEL 141 MEQ/L (136-145); TOTAL PROTEIN 6.4 GM/DL (6.4-8.2)
[2020-07-21] MEDS: NIFEdipine 30 MG XL TAB PO SCH (08:02)
[2020-07-21] MEDS: PRAVASTATIN 20 MG TAB PO SCH (08:02)
[2020-07-21] MEDS: EZETIMIBE 10 MG TAB (ZETIA) PO SCH (08:02)
[2020-07-21] MEDS: ASPIRIN 81 MG ENTERIC TAB PO SCH ×2 (08:02→21:00)
[2020-07-21] MEDS: lisinopriL 40 MG TAB PO SCH (08:02)
[2020-07-21] MEDS: rOPINIRole 0.25 MG TAB(REQUIP) PO SCH (08:03)
[2020-07-21] MEDS: allopurinoL 100 MG TAB PO SCH (08:03)
[2020-07-21] MEDS: OMEPRAZOLE 20 MG CAP PO SCH (08:03)
[2020-07-21] MEDS: MOM 30ML SUSPENSION UDC PO SCH (08:03)
[2020-07-21] MEDS: MIRALAX *UNIT DOSE* 17GM PACKET PO SCH (08:08)
[2020-07-21] MEDS ORDERED: MORPHINE 15 MG SA TAB PO ONE (08:15)
[2020-07-21 10:00] VITALS: BP 135/65
[2020-07-21 14:00] VITALS: BP 138/66
[2020-07-21 16:00] VITALS: BP 166/76
[2020-07-21 22:00] VITALS: BP 136/54
[2020-07-22 02:00] VITALS: BP 166/80
[2020-07-22] MEDS: PERCOCET 5MG/325MG TAB PO PRN ×2 (02:45→06:55)
[2020-07-22 06:00] VITALS: BP 162/80
[2020-07-22 06:11] LABS: HEMATOCRIT 37.2 % (42.0-52.0); HEMOGLOBIN 12.2 g/dl (13.5-17.5); MEAN CORPUSCULAR HGB CONC 32.8 g/dl (32.0-36.5); MEAN CORPUSCULAR VOLUME 91.6 fl (80.0-96.0); PLATELET COUNT, AUTOMATED 214 10^3/uL (150-450); RED BLOOD COUNT 4.06 10^6/uL (4.30-6.10); WHITE BLOOD COUNT 10.1 10^3/uL (4.0-10.0)
[2020-07-22 06:34] LABS: ALT/SGPT 19 U/L (12-78); BILIRUBIN,TOTAL 0.7 MG/DL (0.2-1.0); BLOOD UREA NITROGEN 9 MG/DL (7-18); CALCIUM LEVEL 8.5 MG/DL (8.8-10.2); CARBON DIOXIDE LEVEL 31 MEQ/L (21-32); CHLORIDE LEVEL 103 MEQ/L (98-107); CREATININE FOR GFR 0.85 MG/DL (0.70-1.30); GLOMERULAR FILTRATION RATE > 60.0 (>49); GLUCOSE, FASTING 101 MG/DL (70-100); POTASSIUM SERUM 3.7 MEQ/L (3.5-5.1); SODIUM LEVEL 139 MEQ/L (136-145); TOTAL PROTEIN 6.2 GM/DL (6.4-8.2)
[2020-07-22] MEDS: MIRALAX *UNIT DOSE* 17GM PACKET PO SCH (08:43)
[2020-07-22 08:44] VITALS: BP 162/80
[2020-07-22] MEDS: MOM 30ML SUSPENSION UDC PO SCH (08:44)
[2020-07-22] MEDS: NIFEdipine 30 MG XL TAB PO SCH (08:44)
[2020-07-22] MEDS: OMEPRAZOLE 20 MG CAP PO SCH (08:44)
[2020-07-22] MEDS: PRAVASTATIN 20 MG TAB PO SCH (08:44)
[2020-07-22] MEDS: allopurinoL 100 MG TAB PO SCH (08:44)
[2020-07-22] MEDS: lisinopriL 40 MG TAB PO SCH (08:44)
[2020-07-22] MEDS: rOPINIRole 0.25 MG TAB(REQUIP) PO SCH (08:45)
[2020-07-22] MEDS: ASPIRIN 81 MG ENTERIC TAB PO SCH (08:45)
[2020-07-22] MEDS: EZETIMIBE 10 MG TAB (ZETIA) PO SCH (08:45)
[2020-07-22 09:46] VITALS: O2SAT 96
== END 2020-07-22 11:45 | disposition home or self-care (01) | DRG 470 ==
LOC: M OR 06:55 → M MS5PR 12:45
PROVIDERS: ADMIT Orthopaedic Surgery; ATTEND Orthopaedic Surgery
PROC: 0SRC0J9 Replacement of Right Knee Joint with Synthetic Substitute, Cemented, Open Approach (ICD-10-PCS; principal; 2020-07-20 10:15)
DX: M17.11 Unilateral primary osteoarthritis, right knee (principal); Z79.899 Other long term (current) drug therapy; I10 Essential (primary) hypertension; M10.9 Gout, unspecified; E78.00 Pure hypercholesterolemia, unspecified; K21.9 Gastro-esophageal reflux disease without esophagitis; G25.81 Restless legs syndrome

== ENCOUNTER 2020-10-04 03:43 | Emergency (ER) | payer MEDICARE, OTHER ==
[~2020-10-04] VITALS: Ht 170.2 cm; Wt 106.8 kg
[~2020-10-04 03:43] MED LIST changes: -ACETAMINOPHEN 500 MG TAB PO ONE; +ECOT81TA5 PO; -LISI40TA; +LISI40TA4; -LR 1,000 ML IV ONE; +PERC5TAB12 PO; -ceFAZolin SOD 2 GM in IV 1 EA IV ONE
[2020-10-04] MEDS ORDERED: INDOMETHACIN 25 MG CAP PO ONE (07:00)
[2020-10-04 07:25] LABS: BASO # 0.1 10^3/uL (0.0-0.2); BASO % 0.6 % (0.0-1.0); EOS # 0.2 10^3/uL (0.0-0.5); EOS % 1.9 % (0.0-3.0); HEMOGLOBIN 14.2 g/dl (13.5-17.5); LYMPH # 1.9 10^3/uL (1.5-5.0); LYMPH % 23.5 % (24.0-44.0); MEAN CORPUSCULAR HEMOGLOBIN 28.5 pg (27.0-33.0); MEAN CORPUSCULAR HGB CONC 32.3 g/dl (32.0-36.5); MEAN CORPUSCULAR VOLUME 88.2 fl (80.0-96.0); MONO # 0.5 10^3/uL (0.0-0.8); MONO % 5.9 % (2.0-8.0); NEUTROPHILS # 5.5 10^3/uL (1.5-8.5); NEUTROPHILS % 67.6 % (36.0-66.0); PLATELET COUNT, AUTOMATED 294 10^3/uL (150-450); RED BLOOD COUNT 4.99 10^6/uL (4.30-6.10); WHITE BLOOD COUNT 8.1 10^3/uL (4.0-10.0)
[2020-10-04 07:39] LABS: BLOOD UREA NITROGEN 13 MG/DL (7-18); CALCIUM LEVEL 8.9 MG/DL (8.8-10.2); CARBON DIOXIDE LEVEL 30 MEQ/L (21-32); CHLORIDE LEVEL 104 MEQ/L (98-107); CREATININE FOR GFR 0.84 MG/DL (0.70-1.30); GLOMERULAR FILTRATION RATE > 60.0 (>49); GLUCOSE, FASTING 116 MG/DL (70-100); POTASSIUM SERUM 3.9 MEQ/L (3.5-5.1); SODIUM LEVEL 140 MEQ/L (136-145); URIC ACID 5.9 MG/DL (3.5-7.2)
--- NOTE | 2020-10-04 08:08 | REP ---
INDICATION: L heel pain, h/o gout. COMPARISON: Comparison radiographs the left foot July 01, 2007.. TECHNIQUE: Four views of the left foot are provided. FINDINGS: Four views of the left foot demonstrate prominent Achilles and plantar calcaneal spurring similar to but slightly more prominent when compared to the prior study from 2007. No erosive changes seen. There is a large Achilles calcaneal spur. No soft tissue calcification is appreciated. There is mild osteoarthritic spurring at the 1st MTP joint. Tendon insertion site spurring is noted on the proximal end of the 5th metatarsal. No acute erosive changes seen.. No fracture or subluxation is seen. No opaque foreign body noted. IMPRESSION: Prominent heel spurring again noted. Mild osteoarthritis at the 1st MTP joint. No acute erosive finding.. <Electronically signed by Sherman Kolb > 10/04/20 0809
--- NOTE | 2020-10-04 09:07 | REP ---
INDICATION: r/o dvt. COMPARISON: None. TECHNIQUE: Left lower extremity duplex venous ultrasound. FINDINGS: The deep veins are anechoic and fully compressible from the groin to the popliteal fossa in the left lower extremity. Color flow imaging is homogeneous. Spectral Doppler interrogation demonstrates intact respiratory variation in flow and normal manual augmentation of flow. There is no evidence of deep vein thrombosis. IMPRESSION: Negative left lower extremity duplex venous ultrasound. No evidence of deep vein thrombosis. <Electronically signed by Sherman Kolb > 10/04/20 0941
--- NOTE | 2020-10-04 09:09 | REP ---
INDICATION: r/o heel/achilles injury. COMPARISON: Comparison is made with today's radiographs showing prominent Achilles calcaneal spurring.. TECHNIQUE: Soft tissue sonography Achilles tendon sagittal and transverse imaging. FINDINGS: Sagittal and transverse images of the Achilles tendon show no evidence of discontinuity or or disruption. There is a sliver of fluid in the pre Achilles soft tissues anterior to the calcaneal attachment. Some bony hypertrophy is seen at the calcaneal attachment consistent with a spurring. IMPRESSION: No evidence of Achilles tendon disruption or injury. <Electronically signed by Sherman Kolb > 10/04/20 0981
[2020-10-04] MEDS ORDERED: INDO50CA91 PO (09:26)
[2020-10-04] MEDS ORDERED: hydroCHLOROthiazide 12.5 MG CAPSULE PO ONE (09:40)
[2020-10-04] MEDS ORDERED: NIFEdipine 10 MG CAP PO STA (09:40)
[2020-10-04] MEDS ORDERED: NIFEdipine 30 MG XL TAB PO STA ×2 (09:53)
[2020-10-04 10:18] VITALS: BP 176/99
[2020-10-04 10:22] VITALS: BP 166/88
== END 2020-10-04 10:28 | disposition home or self-care (01) ==
LOC: M ED 03:43
DX: M77.32 Calcaneal spur, left foot (principal); M10.9 Gout, unspecified; M19.072 Primary osteoarthritis, left ankle and foot; I10 Essential (primary) hypertension; E78.5 Hyperlipidemia, unspecified; Z79.82 Long term (current) use of aspirin; Z79.899 Other long term (current) drug therapy

== ENCOUNTER → 2020-11-09 | Outpatient (CLI) | payer MEDICARE, OTHER ==
[~2020-11-09] MED LIST changes: +INDO50CA91 PO
--- NOTE | 2020-11-09 17:45 | REP ---
INDICATION: LEFT KNEE OSTEOARTHRITIS / EKG AND LABS 1ST COMPARISON: 07/13/2020 TECHNIQUE: PA and lateral. FINDINGS: The mediastinum and cardiac silhouette are normal. The lung resendiz are clear and without acute consolidation, effusion, or pneumothorax. The skeletal structures are intact and normal. IMPRESSION: No acute cardiopulmonary process. <Electronically signed by Tu Alvarez > 11/09/20 2145
[2020-11-09 18:32] LABS: HEMATOCRIT 44.7 % (42.0-52.0); HEMOGLOBIN 14.5 g/dl (13.5-17.5); MEAN CORPUSCULAR HEMOGLOBIN 28.8 pg (27.0-33.0); MEAN CORPUSCULAR HGB CONC 32.4 g/dl (32.0-36.5); MEAN CORPUSCULAR VOLUME 88.7 fl (80.0-96.0); PLATELET COUNT, AUTOMATED 306 10^3/uL (150-450); RED BLOOD COUNT 5.04 10^6/uL (4.30-6.10); WHITE BLOOD COUNT 7.2 10^3/uL (4.0-10.0)
[2020-11-09 18:42] LABS: INR 1.01; PROTHROMBIN TIME 13.5 SECONDS (12.5-14.3)
[2020-11-09 18:57] LABS: ALBUMIN 3.8 GM/DL (3.2-5.2); ALT/SGPT 25 U/L (12-78); BILIRUBIN,TOTAL 0.3 MG/DL (0.2-1.0); BLOOD UREA NITROGEN 12 MG/DL (7-18); CALCIUM LEVEL 9.2 MG/DL (8.8-10.2); CARBON DIOXIDE LEVEL 27 MEQ/L (21-32); CHLORIDE LEVEL 105 MEQ/L (98-107); CREATININE FOR GFR 1.07 MG/DL (0.70-1.30); GLOMERULAR FILTRATION RATE > 60.0 (>49); GLUCOSE, FASTING 95 MG/DL (70-100); POTASSIUM SERUM 3.7 MEQ/L (3.5-5.1); SODIUM LEVEL 142 MEQ/L (136-145); TOTAL PROTEIN 7.5 GM/DL (6.4-8.2)
[2020-11-09 19:51] LABS: ERYTHROCYTE SEDIMENTATION RATE 6 mm/hr (0-20)
--- NOTE | 2020-11-09 21:21 | ECGEPIP ---
[facility] Test Date: 2020-11-09 Pat Name: MAXIMILIAN OAKLEY Department: Room: - Gender: Male [employer]: [employer]YRONE : 1950 Requested By: Kiana Montgomery Order Number: [id number] Reading MD: Raymond Chavis Measurements Intervals [place] Rate: 70 P: 21 WA: 154 QRS: 2 QRSD: 90 T: 22 QT: 390 QTc: 421 Interpretive Statements Normal sinus rhythm Nonspecific T wave abnormality No significant change when compared to prior tracing of 07/13/2020 Electronically Signed on 11-09-2020 21:21:17 EDT by Raymond Chavis
== END ==
LOC: M LAB 16:49
PROVIDERS: ATTEND Orthopaedic Surgery
DX: M17.11 Unilateral primary osteoarthritis, right knee (principal); I51.9 Heart disease, unspecified

== ENCOUNTER → 2021-03-06 | Outpatient (CLI) | payer MEDICARE, OTHER | LOC: M SLEEP 20:00 | PROVIDERS: ATTEND Internal Medicine Pulmonary Disease | DX: G47.33 Obstructive sleep apnea (adult) (pediatric) (principal) ==

== ENCOUNTER → 2021-03-23 | Outpatient (CLI) | payer MEDICARE, OTHER | LOC: M PLALAB 09:10 | PROVIDERS: ATTEND Nurse Practitioner Women's Health | DX: Z12.5 Encounter for screening for malignant neoplasm of prostate (principal) | CPT/HCPCS: 36415; G0103; G0463 ==

== ENCOUNTER → 2021-04-14 | Outpatient (CLI) | payer MEDICARE, OTHER ==
[2021-04-14 11:49] LABS: ALBUMIN 3.7 GM/DL (3.2-5.2); ALT/SGPT 31 U/L (12-78); BILIRUBIN,TOTAL 0.5 MG/DL (0.2-1.0); BLOOD UREA NITROGEN 18 MG/DL (7-18); CALCIUM LEVEL 9.5 MG/DL (8.8-10.2); CARBON DIOXIDE LEVEL 31 MEQ/L (21-32); CHLORIDE LEVEL 106 MEQ/L (98-107); CHOLESTEROL LEVEL 129 MG/DL (<200); CHOLESTEROL RISK RATIO 3.486 (<5); CREATININE FOR GFR 0.89 MG/DL (0.70-1.30); GLOMERULAR FILTRATION RATE > 60.0 (>49); GLUCOSE, FASTING 103 MG/DL (70-100); HDL CHOLESTEROL 37 MG/DL (>40); LDL CHOLESTEROL 22 MG/DL (<100); NON-HDL-C 92 MG/DL; POTASSIUM SERUM 4.2 MEQ/L (3.5-5.1); SODIUM LEVEL 139 MEQ/L (136-145); TOTAL 25(OH) VITAMIN D 29.1 NG/ML (30.0-100.0); TRIGLYCERIDES LEVEL 351 MG/DL (<150); URIC ACID 6.1 MG/DL (3.5-7.2)
== END ==
LOC: M PLALAB 08:59
PROVIDERS: ATTEND Family Medicine
DX: I10 Essential (primary) hypertension (principal); E78.2 Mixed hyperlipidemia; E55.9 Vitamin D deficiency, unspecified; M10.9 Gout, unspecified

== ENCOUNTER → 2021-04-25 | Outpatient (CLI) | payer MEDICARE, OTHER ==
--- NOTE | 2021-04-26 18:11 | SLEEPCENT ---
DATE: 04/25/2021 ORDERED BY: Eliecer Corrales MD Nocturnal polysomnography was performed for the titration of pressure therapy in this patient with obstructive sleep apnea syndrome, apnea-hypopnea index of 68.9. For testing a ResMed AirFit F20 full face mask of medium size was used, 4 cm of water pressure were applied to the circuit, and the lights were extinguished. Eight hours and 15 minutes of data were reviewed. There were 375.5 minutes of sleep identified. Sleep latency was normal at 11.5 minutes. REM latency was normal at 60.5 minutes. Sleep architecture was good with four REM cycles. A wake around 1:00 to 2:00 a.m. did result in reduced sleep efficiency of 76.8%. The electrocardiogram showed a sinus rhythm with an average heart rate of 55 beats per minute. EEG showed normal waveforms for wake and sleep. Respiratory events were fully palliated with CPAP at a pressure of 10. Some limb activity was noted but limb movement arousals were few. IMPRESSION: Obstructive sleep apnea syndrome (G47.33). RECOMMENDATION: Nightly use of pressure therapy 10 cm of water. cc: Juanjo Millard
== END ==
LOC: M SLEEP 20:00
PROVIDERS: ATTEND Internal Medicine Pulmonary Disease
DX: G47.33 Obstructive sleep apnea (adult) (pediatric) (principal)

== ENCOUNTER → 2021-10-04 | Outpatient (CLI) | payer MEDICARE, OTHER ==
[~2021-10-04] MED LIST changes: +NAPR-849 PO; +VITA1CAP25
[2021-10-04 15:45] LABS: BLOOD UREA NITROGEN 18 MG/DL (7-18); CALCIUM LEVEL 9.1 MG/DL (8.8-10.2); CARBON DIOXIDE LEVEL 31 MEQ/L (21-32); CHLORIDE LEVEL 104 MEQ/L (98-107); CREATININE FOR GFR 0.99 MG/DL (0.70-1.30); GLOMERULAR FILTRATION RATE > 60.0 (>49); GLUCOSE, FASTING 96 MG/DL (70-100); POTASSIUM SERUM 4.2 MEQ/L (3.5-5.1); SODIUM LEVEL 138 MEQ/L (136-145)
== END ==
LOC: M PLALAB 12:24
PROVIDERS: ATTEND Family Medicine
DX: I10 Essential (primary) hypertension (principal)

== ENCOUNTER 2021-10-12 17:43 | Emergency (ER) | payer MEDICARE, OTHER ==
[~2021-10-12] VITALS: Ht 170.2 cm; Wt 119.1 kg
[~2021-10-12 17:43] MED LIST changes: -NAPR-849 PO; -VITA1CAP25
[2021-10-12 17:44] VITALS: BP 162/76
[2021-10-12] MEDS ORDERED: NAPR-849 PO (18:01)
[2021-10-12] MEDS ORDERED: VITA1CAP25 (18:01)
[2021-10-12] MEDS ORDERED: CYCL-707 (18:01)
[2021-10-12] MEDS ORDERED: CYCL-707 PO (18:28)
== END 2021-10-12 18:39 | disposition home or self-care (01) ==
LOC: M ED 17:43
DX: S39.011A Strain of muscle, fascia and tendon of abdomen, initial encounter (principal); X50.1XXA Overexertion from prolonged static or awkward postures, initial encounter; Y92.9 Unspecified place or not applicable; Y93.73 Activity, racquet and hand sports; Y99.9 Unspecified external cause status; Z96.653 Presence of artificial knee joint, bilateral; I10 Essential (primary) hypertension; E78.5 Hyperlipidemia, unspecified; G25.81 Restless legs syndrome; K21.9 Gastro-esophageal reflux disease without esophagitis; Z79.899 Other long term (current) drug therapy

== ENCOUNTER → 2022-02-08 | Outpatient (CLI) | payer MEDICARE, OTHER ==
[~2022-02-08] MED LIST changes: +NAPR-849 PO; +VITA1CAP25
[2022-02-08 17:58] LABS: PLATELET COUNT, AUTOMATED 241 10^3/uL (150-450)
[2022-02-08 18:15] LABS: INR 0.99; PROTHROMBIN TIME 13.5 SECONDS (12.7-14.5)
[2022-02-08 18:16] LABS: PARTIAL THROMBOPLASTIN TIME 24.3 SECONDS (25.9-37.0)
== END ==
LOC: M LAB 17:07
PROVIDERS: ATTEND Physical Medicine & Rehabilitation
DX: M48.062 Spinal stenosis, lumbar region with neurogenic claudication (principal)

== ENCOUNTER → 2022-05-05 | Outpatient (CLI) | payer MEDICARE, OTHER ==
[2022-05-05 14:59] LABS: BASO % 0.6 % (0.0-1.0); EOS # 0.2 10^3/uL (0.0-0.5); EOS % 2.6 % (0.0-3.0); HEMATOCRIT 43.1 % (42.0-52.0); HEMOGLOBIN 13.5 g/dl (13.5-17.5); LYMPH # 1.7 10^3/uL (1.5-5.0); MEAN CORPUSCULAR HEMOGLOBIN 27.7 pg (27.0-33.0); MEAN CORPUSCULAR HGB CONC 31.3 g/dl (32.0-36.5); MEAN CORPUSCULAR VOLUME 88.5 fl (80.0-96.0); MONO # 0.5 10^3/uL (0.0-0.8); MONO % 8.6 % (2.0-8.0); NEUTROPHILS # 3.7 10^3/uL (1.5-8.5); NEUTROPHILS % 60.4 % (36.0-66.0); PLATELET COUNT, AUTOMATED 228 10^3/uL (150-450); RED BLOOD COUNT 4.87 10^6/uL (4.30-6.10); WHITE BLOOD COUNT 6.2 10^3/uL (4.0-10.0)
[2022-05-05 15:51] LABS: ERYTHROCYTE SEDIMENTATION RATE 9 mm/hr (0-20)
== END ==
LOC: M PLALAB 09:43
PROVIDERS: ATTEND Orthopaedic Surgery
DX: Z96.652 Presence of left artificial knee joint (principal)

== ENCOUNTER → 2022-05-05 | Outpatient (CLI) | payer MEDICARE, OTHER ==
[2022-05-05 15:00] LABS: HEMATOCRIT 42.6 % (42.0-52.0); HEMOGLOBIN 13.5 g/dl (13.5-17.5); MEAN CORPUSCULAR HEMOGLOBIN 27.9 pg (27.0-33.0); MEAN CORPUSCULAR HGB CONC 31.7 g/dl (32.0-36.5); PLATELET COUNT, AUTOMATED 235 10^3/uL (150-450); RED BLOOD COUNT 4.84 10^6/uL (4.30-6.10); WHITE BLOOD COUNT 6.4 10^3/uL (4.0-10.0)
[2022-05-05 16:57] LABS: ALBUMIN 3.8 G/DL (3.2-5.2); ALKALINE PHOSPHATASE 97 U/L (46-116); ALT/SGPT 37 U/L (7.0-40); AST/SGOT 30 U/L (<34); BILIRUBIN,TOTAL 0.4 MG/DL (0.3-1.2); BLOOD UREA NITROGEN 13 MG/DL (9-23); CALCIUM LEVEL 8.7 MG/DL (8.3-10.6); CARBON DIOXIDE LEVEL 30 MMOL/L (20-31); CHLORIDE LEVEL 104 MMOL/L (98-107); CHOLESTEROL LEVEL 139 MG/DL (<200); CHOLESTEROL RISK RATIO 3.74 (<5); CREATININE FOR GFR 0.91 MG/DL (0.70-1.30); FREE T4 1.03 NG/DL (0.89-1.76); GLOMERULAR FILTRATION RATE > 60.0 (>49); GLUCOSE, FASTING 106 MG/DL (74-106); HDL CHOLESTEROL 37.1 MG/DL (>40); LDL CHOLESTEROL 60.9 MG/DL (<100); NON-HDL-C 102 MG/DL; POTASSIUM SERUM 4.7 MMOL/L (3.5-5.1); SODIUM LEVEL 142 MMOL/L (136-145); THYROID STIMULATING HORMONE 1.498 uIU/ML (0.55-4.78); TOTAL 25(OH) VITAMIN D 32.5 NG/ML (20.0-100.0); TOTAL PROTEIN 6.7 G/DL (5.7-8.2); TRIGLYCERIDES LEVEL 205 MG/DL (<150); VITAMIN B12 LEVEL 370 PG/ML (211-911)
[2022-05-05 22:24] LABS: CREATININE, URINE 186.6 MG/DL; MAU/CREAT RATIO 3.7 MCG/MG (0.0-30.0)
[2022-05-06 04:11] LABS: HEMOGLOBIN A1c 5.8 % (4.0-6.0)
== END ==
LOC: M PLALAB 09:40
PROVIDERS: ATTEND Internal Medicine Hematology
DX: I10 Essential (primary) hypertension (principal); N52.9 Male erectile dysfunction, unspecified; E78.2 Mixed hyperlipidemia; Z96.652 Presence of left artificial knee joint

== ENCOUNTER → 2022-10-14 | Outpatient (CLI) | payer MEDICARE, OTHER ==
[2022-10-14 13:56] LABS: HEMATOCRIT 43.5 % (42.0-52.0); MEAN CORPUSCULAR HEMOGLOBIN 28.5 pg (27.0-33.0); MEAN CORPUSCULAR HGB CONC 32.2 g/dl (32.0-36.5); MEAN CORPUSCULAR VOLUME 88.6 fl (80.0-96.0); PLATELET COUNT, AUTOMATED 246 10^3/uL (150-450); RED BLOOD COUNT 4.91 10^6/uL (4.30-6.10); WHITE BLOOD COUNT 7.3 10^3/uL (4.0-10.0)
[2022-10-14 14:07] LABS: HEMOGLOBIN A1c 5.8 % (4.0-6.0)
[2022-10-14 14:28] LABS: THYROID STIMULATING HORMONE 1.107 uIU/ML (0.55-4.78); TOTAL 25(OH) VITAMIN D 43.5 NG/ML (20.0-100.0)
[2022-10-14 14:29] LABS: ALBUMIN 3.5 G/DL (3.2-5.2); ALKALINE PHOSPHATASE 119 U/L (46-116); ALT/SGPT 34 U/L (7.0-40); AST/SGOT 19 U/L (<34); BILIRUBIN,TOTAL 0.6 MG/DL (0.3-1.2); BLOOD UREA NITROGEN 13 MG/DL (9-23); CALCIUM LEVEL 8.8 MG/DL (8.3-10.6); CARBON DIOXIDE LEVEL 30 MMOL/L (20-31); CHLORIDE LEVEL 104 MMOL/L (98-107); CHOLESTEROL LEVEL 154 MG/DL (<200); CHOLESTEROL RISK RATIO 4.42 (<5); CREATININE FOR GFR 0.93 MG/DL (0.70-1.30); GLOMERULAR FILTRATION RATE > 60.0 (>42); GLUCOSE, FASTING 115 MG/DL (74-106); HDL CHOLESTEROL 34.8 MG/DL (>40); LDL CHOLESTEROL 67.8 MG/DL (<100); NON-HDL-C 119.2 MG/DL; POTASSIUM SERUM 4.2 MMOL/L (3.5-5.1); SODIUM LEVEL 141 MMOL/L (136-145); TOTAL PROTEIN 6.7 G/DL (5.7-8.2); TRIGLYCERIDES LEVEL 257 MG/DL (<150)
[2022-10-14 14:30] LABS: VITAMIN B12 LEVEL 382 PG/ML (211-911)
== END ==
LOC: M PLALAB 11:03
PROVIDERS: ATTEND Internal Medicine Hematology
DX: E78.2 Mixed hyperlipidemia (principal); I10 Essential (primary) hypertension; E55.9 Vitamin D deficiency, unspecified
CPT/HCPCS: 36415; 80053; 80061; 82306; 82607; 83036; 84443; 85027; 86140; G0103

== ENCOUNTER → 2022-10-20 | Outpatient (CLI) | payer MEDICARE, OTHER ==
[2022-10-20 13:33] LABS: INR 0.85; PROTHROMBIN TIME 11.8 SECONDS (12.5-14.5)
[2022-10-20 13:34] LABS: PARTIAL THROMBOPLASTIN TIME 24.2 SECONDS (24.8-34.2)
== END ==
LOC: M PLALAB 10:29
PROVIDERS: ATTEND Internal Medicine Hematology
DX: Z01.818 Encounter for other preprocedural examination (principal); G47.33 Obstructive sleep apnea (adult) (pediatric)

== ENCOUNTER 2022-10-30 16:50 | Emergency (ER) | payer MEDICARE, OTHER ==
[~2022-10-30] VITALS: Ht 170.2 cm; Wt 121.1 kg
[2022-10-30] MEDS ORDERED: ACETAMINOPHEN TAB 650MG DOSE (2X325MG) PO ONE (17:25)
[2022-10-30 18:15] LABS: BASO % 0.2 % (0.0-1.0); EOS % 0.2 % (0.0-3.0); HEMATOCRIT 36.1 % (42.0-52.0); HEMOGLOBIN 12.2 g/dl (13.5-17.5); LYMPH # 1.4 10^3/uL (1.5-5.0); LYMPH % 10.7 % (24.0-44.0); MEAN CORPUSCULAR HEMOGLOBIN 28.7 pg (27.0-33.0); MEAN CORPUSCULAR HGB CONC 33.8 g/dl (32.0-36.5); MEAN CORPUSCULAR VOLUME 84.9 fl (80.0-96.0); MONO % 7.3 % (2.0-8.0); NEUTROPHILS # 10.7 10^3/uL (1.5-8.5); NEUTROPHILS % 80.8 % (36.0-66.0); PLATELET COUNT, AUTOMATED 339 10^3/uL (150-450); RED BLOOD COUNT 4.25 10^6/uL (4.30-6.10); WHITE BLOOD COUNT 13.2 10^3/uL (4.0-10.0)
[2022-10-30] MEDS ORDERED: PIPERACILLIN/TAZOBACTAM SOD 4.5 GM in D5W MINI-BAG PLUS 50 ML IV ONE (18:30)
[2022-10-30] MEDS ORDERED: VANCOMYCIN HCL 1,000 MG, VIAL MATE ADAPTER 1 EACH in D5W 250 ML IV ONE (18:30)
[2022-10-30 18:38] LABS: ALBUMIN 2.9 G/DL (3.2-5.2); ALKALINE PHOSPHATASE 112 U/L (46-116); ALT/SGPT 53 U/L (7.0-40); AST/SGOT 104 U/L (<34); BILIRUBIN,DIRECT 0.7 MG/DL (<0.4); BILIRUBIN,TOTAL 1.3 MG/DL (0.3-1.2); BLOOD UREA NITROGEN 18 MG/DL (9-23); CALCIUM LEVEL 8.6 MG/DL (8.3-10.6); CARBON DIOXIDE LEVEL 27 MMOL/L (20-31); CHLORIDE LEVEL 97 MMOL/L (98-107); CREATININE FOR GFR 0.79 MG/DL (0.70-1.30); GLOMERULAR FILTRATION RATE > 60.0 (>42); GLUCOSE, FASTING 100 MG/DL (74-106); POTASSIUM SERUM 3.4 MMOL/L (3.5-5.1); SODIUM LEVEL 133 MMOL/L (136-145); TOTAL PROTEIN 6.4 G/DL (5.7-8.2)
[2022-10-30 18:40] LABS: THYROID STIMULATING HORMONE 0.719 uIU/ML (0.55-4.78)
[2022-10-30 18:54] LABS: ETHYL ALCOHOL (ETHANOL) < 0.003 % (0.000-0.010)
[2022-10-30 20:00] VITALS: BP 148/67
== END 2022-10-30 20:21 | disposition short-term general hospital (02) ==
LOC: M ED 16:50 → EDBD 16:50 → M ED 20:21
DX: R41.82 Altered mental status, unspecified (principal); R65.10 Systemic inflammatory response syndrome (SIRS) of non-infectious origin without acute organ dysfunction; R33.9 Retention of urine, unspecified; I10 Essential (primary) hypertension; E78.5 Hyperlipidemia, unspecified; M19.90 Unspecified osteoarthritis, unspecified site; K21.9 Gastro-esophageal reflux disease without esophagitis; G25.81 Restless legs syndrome; E55.9 Vitamin D deficiency, unspecified; G47.33 Obstructive sleep apnea (adult) (pediatric); Z87.891 Personal history of nicotine dependence; Z79.899 Other long term (current) drug therapy
CPT/HCPCS: 51701; 51702; 70450; 71045; 80048; 80076; 81001; 82077; 82140; 83605; 84443; 84484; 85025; 87040; 87486; 87581; 87633; 87798; 93005; 93041; 94760; 96374; 96375; 99285; J2543